=== PATIENT | female | born 2000 | race Caucasian/White ===

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

== ENCOUNTER 2021-04-12 13:58 | Emergency (ER) | payer BC, OTHER ==
[2021-04-12 14:22] VITALS: BP 110/69; PULSE 63; TEMP 97.2; BMI 24.2
[2021-04-12 15:46] LABS: BASO % 0.4 % (0-2.0); EOS % 0.8 % (0-4.5); HEMOGLOBIN 11.9 GM/dL (10.7-15.3); MCH 25.2 pg (25.7-33.7); MCHC 32.3 g/dl (32.0-36.0); MEAN PLT VOLUME 8.3 fl (7.5-11.1); NEUT % 71.8 % (42.8-82.8); PLATELET COUNT 329 10^3/uL (134-434); RBC 4.75 M/mm3 (3.60-5.2); RDW 15.1 % (11.6-15.6); WHITE BLOOD COUNT 7.3 K/mm3 (4.0-10.0)
[2021-04-12 16:05] LABS: CHLORIDE 107 mmol/L (98-107); SODIUM 140 mmol/L (136-145)
[2021-04-12 16:07] LABS: ANION GAP 6 MMOL/L (8-16); BLOOD UREA NITROGEN 10.4 mg/dL (7-18); CO2 27 mmol/L (21-32)
[2021-04-12 16:08] LABS: ALBUMIN 4.3 g/dl (3.4-5.0); GLUCOSE,RANDOM 95 mg/dL (74-106)
[2021-04-12 16:11] LABS: CREATININE 0.7 mg/dL (0.55-1.3); SGOT/AST 27 U/L (15-37); SGPT/ALT 23 U/L (13-61)
[2021-04-12 16:12] LABS: BILIRUBIN,TOTAL 0.6 mg/dL (0.2-1); TOT PROT 8.2 g/dl (6.4-8.2)
[2021-04-12 16:13] LABS: ALK PHOS 66 U/L (45-117)
[2021-04-12 18:47] LABS: URINE APPEARANCE CLEAR; URINE BILIRUBIN NEGATIVE (NEGATIVE); URINE COLOR YELLOW; URINE GLUCOSE (UA) NEGATIVE (NEGATIVE); URINE KETONE NEGATIVE (NEGATIVE)
[2021-04-12 18:48] LABS: URINE LEUK ESTERASE NEGATIVE (NEGATIVE); URINE NITRITE NEGATIVE (NEGATIVE); URINE PROTEIN NEGATIVE (NEGATIVE); URINE UROBILINOGEN 0.2 mg/dL (0.2-1.0)
== END 2021-04-12 19:43 | disposition home or self-care (01) ==
LOC: JER 13:58
DX: N94.6 Dysmenorrhea, unspecified (principal)
CPT/HCPCS: 36415; 80053; 81003; 84702; 85025; 87086; 99283-25

== ENCOUNTER 2021-07-29 16:10 | Emergency (ER) | payer OTHER ==
[2021-07-29 16:29] VITALS: TEMP 98.5; BMI 24.5
[2021-07-29] MEDS ORDERED: ACETAMINOPHEN 500 MG TABLET (FP) PO ONE (17:10)
[2021-07-29] MEDS ORDERED: DIPHTH,PERTUSS(ACELL),TET 0.5 ML DISP.SYRIN IM ONE ×2 (17:10→17:16)
[2021-07-29] MEDS ORDERED: ACETAMINOPHEN 325 MG TABLET (FP) ONE (17:16)
[2021-07-29] MEDS ORDERED: ALBUTEROL SO4 2.5/IPRATROPIUM 0.5 INH SOL 3 ML VIAL.NEB. NEB ONE (17:16)
[2021-07-29] MEDS ORDERED: ALBUTEROL SO4 HFA INHALER IH ONE (17:35)
[2021-07-29] MEDS ORDERED: ONDANSETRON *ODT* 4 MG TABLET SL ONE (17:50)
[2021-07-29] MEDS ORDERED: MAG HYDROX/AL HYDROX/SIMETH 30 ML UNIT-DOSE CUP PO ONE (17:50)
[2021-07-29] MEDS: ALBUTEROL SO4 2.5/IPRATROPIUM 0.5 INH SOL 3 ML VIAL.NEB. NEB SCH ×4 (18:01→20:36)
[2021-07-29] MEDS ORDERED: ONDANSETRON *ODT* 4 MG TABLET ONE (18:02)
[2021-07-29] MEDS ORDERED: MAG HYDROX/AL HYDROX/SIMETH 30 ML UNIT-DOSE CUP ONE (18:02)
[2021-07-29 19:18] LABS: EPI CELLS >36 /uL (0-25.1); HCG,QUALITATIVE URINE Negative; HYALINE CASTS 4 /uL (0-3.1); URINE APPEARANCE CLEAR; URINE BACTERIA 488 /uL (0-1359); URINE BILIRUBIN NEGATIVE (NEGATIVE); URINE COLOR YELLOW; URINE GLUCOSE (UA) NEGATIVE (NEGATIVE); URINE KETONE TRACE (NEGATIVE); URINE LEUK ESTERASE NEGATIVE (NEGATIVE); URINE NITRITE NEGATIVE (NEGATIVE); URINE PROTEIN 1+ (NEGATIVE); URINE RBC 35 /uL (0-23.9); URINE UROBILINOGEN 0.2 mg/dL (0.2-1.0); URINE WBC 13 /uL (0-25.8)
[2021-07-29 20:29] VITALS: BP 108/65; PULSE 70
== END 2021-07-29 21:42 | disposition home or self-care (01) ==
LOC: JER 16:10
PROC: 3E0234Z Introduction of Serum, Toxoid and Vaccine into Muscle, Percutaneous Approach (ICD-10-PCS; principal; 2021-07-29)
DX: S62.316A Displaced fracture of base of fifth metacarpal bone, right hand, initial encounter for closed fracture (principal); J45.909 Unspecified asthma, uncomplicated; Y04.0XXA Assault by unarmed brawl or fight, initial encounter
CPT/HCPCS: 70450-TC; 71046-TC-FY; 71101-TC-RT-FY; 72125-TC; 73110-TC-RT-FY; 73130-TC-RT-FY; 76604; 76705-TC; 81003; 84703; 87086; 90471; 90715; 93308; 99285-25; C9803; Q0162; U0003; U0005

== ENCOUNTER 2022-04-06 19:00 | Emergency (ER) | payer OTHER ==
[2022-04-06 19:07] VITALS: BP 105/69; PULSE 79; RESP 18; TEMP 98; BMI 22.6
== END 2022-04-06 22:46 | disposition left against medical advice (07) ==
LOC: JER 19:00
DX: R10.9 Unspecified abdominal pain (principal); R11.0 Nausea
CPT/HCPCS: 99281-25

== ENCOUNTER 2022-07-26 10:08 | Emergency (ER) | payer OTHER ==
[2022-07-26 10:26] VITALS: TEMP 98; BMI 24.3
[2022-07-26 13:54] LABS: BASO % 0.6 % (0-2.0); EOS % 1.1 % (0-4.5); HEMATOCRIT 37.5 % (32.4-45.2); HEMOGLOBIN 11.8 GM/dL (10.7-15.3); MCH 25.2 pg (25.7-33.7); MCHC 31.5 g/dl (32.0-36.0); MEAN CELL VOLUME 79.9 fl (80-96); MEAN PLT VOLUME 8.7 fl (7.5-11.1); MONO % 5.9 % (3.8-10.2); NEUT % 62.4 % (42.8-82.8); PLATELET COUNT 316 10^3/uL (134-434); RBC 4.69 M/mm3 (3.60-5.2); RDW 13.5 % (11.6-15.6); WHITE BLOOD COUNT 5.1 K/mm3 (4.0-10.0)
[2022-07-26 13:58] LABS: HCG,QUALITATIVE URINE Negative
[2022-07-26 13:59] LABS: EPI CELLS 6 /uL (0-25.1); HYALINE CASTS 0 /uL (0-3.1); URINE APPEARANCE CLEAR; URINE BACTERIA 170 /uL (0-1359); URINE BILIRUBIN NEGATIVE (NEGATIVE); URINE COLOR YELLOW; URINE GLUCOSE (UA) NEGATIVE (NEGATIVE); URINE KETONE NEGATIVE (NEGATIVE); URINE LEUK ESTERASE NEGATIVE (NEGATIVE); URINE NITRITE NEGATIVE (NEGATIVE); URINE PROTEIN NEGATIVE (NEGATIVE); URINE RBC 26 /uL (0-23.9); URINE UROBILINOGEN 0.2 mg/dL (0.2-1.0); URINE WBC 6 /uL (0-25.8)
[2022-07-26 14:02] LABS: INR 1.02 (0.83-1.09); PROTHROMBIN TIME (PATIENT) 11.7 SEC (9.7-13.0)
[2022-07-26 14:05] LABS: ACTIVATED PTT 30.6 SECONDS (25.2-36.5)
[2022-07-26 14:29] LABS: BLOOD UREA NITROGEN 10.9 mg/dL (7-18); CALCIUM 9.1 mg/dL (8.5-10.1)
[2022-07-26 14:32] LABS: CREATININE 0.6 mg/dL (0.55-1.3)
[2022-07-26 14:34] LABS: TOT PROT 7.3 g/dl (6.4-8.2)
[2022-07-26] MEDS ORDERED: ACETAMINOPHEN INJECTION 100 ML IVPB ONE ×2 (14:35→14:47)
[2022-07-26 15:34] VITALS: BP 108/66; PULSE 61; RESP 18
== END 2022-07-26 15:29 | disposition home or self-care (01) ==
LOC: JER 10:08
PROC: 3E0333Z Introduction of Anti-inflammatory into Peripheral Vein, Percutaneous Approach (ICD-10-PCS; principal; 2022-07-26)
DX: N93.9 Abnormal uterine and vaginal bleeding, unspecified (principal)
CPT/HCPCS: 36415; 76830-TC; 80053; 81003; 84703; 85025; 85610; 85730; 86850; 86900; 86901; 87086; 99284-25